=== PATIENT | female | born 1960 | race African-American/Black ===

== ENCOUNTER 2018-11-27 10:22 | Emergency (ER) | payer OTHER ==
[2018-11-27 10:35] VITALS: BP 147/70; PULSE 79; TEMP 97.8; BMI 24.5
--- NOTE | 2018-11-27 11:21 | PDOC ---
Attending Attestation - Resident Resident Name: Francesca Hinson - ED Attending Attestation I have performed the following: I have examined & evaluated the patient, The case was reviewed & discussed with the resident, I agree w/resident's findings & plan, Exceptions are as noted - HPI HPI: 11/27/18 11:47 58-year-old female with past medical history of hypertension, type 2 diabetes, adherent to her medications presents with concerns for potential hyperglycemia. The patient recently moved from [place] 2 months ago. She states that she has a machine that uses different units for checking glucose. Typically normal range ranges from 5-7. However, she had a few readings in the last several days that ranges to 10. But she is not sure as this may be secondary to her machine or stress. She denies any symptoms at all including fevers, chills, cough, vomiting , polyuria, polydipsia. Patient states that arrange of 10 suggest glucose of 170. - Physicial Exam PE: 11/27/18 11:49 GENERAL: Awake, alert, and fully oriented, in no acute distress HEAD: No signs of trauma EYES: EOMI, sclera anicteric, conjunctiva clear ENT: Auricles normal inspection, hearing grossly normal, nares patent, Moist mucosa NECK: Normal ROM, suppleses LUNGS: Breath sounds equal, clear to auscultation bilaterally. No wheezes, and no crackles HEART: Regular rate and rhythm, normal S1 and S2, no murmurs, rubs or gallops ABDOMEN: Soft, nontender. No guarding, no rebound. No masses EXTREMITIES: Normal range of motion, no edema. No clubbing or cyanosis. No cords, erythema, or tenderness NEUROLOGICAL: Cranial nerves II through XII grossly intact. Normal speech, normal gait SKIN: Warm, Dry, normal turgor, no rashes or lesions noted. - Medical Decision Making 11/27/18 11:49 Vital Signs Temp Pulse Resp BP Pulse Ox 97.8 F 79 18 147/70 100 11/27/18 10:32 11/27/18 10:32 11/27/18 10:32 11/27/18 10:32 11/27/18 10:32 Here the patient sugar is 139. At this time, I would not pursue any emergent workup at this time. However, patient does report that she is in the process of obtaining primary care physician. The patient can be discharged with outpatient management of her diabetes. Patient verbalizes understanding agreeable with plan. Patient states that she'll buy a new machine.
--- NOTE | 2018-11-27 11:43 | PDOC ---
History of Present Illness - General Chief Complaint: Blood Sugar Problem Stated Complaint: HTN Time Seen by Provider: 11/27/18 10:53 - History of Present Illness Initial Comments: Selene Chicas is a 58yo woman with a PMH of HTN, HLD, DM who presents reporting high blood sugars at home for several days. She states that her sugars have been in the high 100's, which is not normal for her. She has been taking her prescribed metformin and vidagliptin as prescribed, but she reports that she thinks the prescriptions were changed slightly the last time she saw a primary doctor. Ms Chicas recently moved from [place] 7wks ago and has not yet established care in the [facility]. Ms Chicas denies any recent symptoms including polyuria, change in diet, or infectious symptoms. She has been feeling well but was concerned about the unusually high sugars. Past History - Past Medical History Allergies/Adverse Reactions: Allergies Allergy/AdvReac Type Severity Reaction Status Date / Time Penicillins Allergy Verified 11/27/18 11:56 COPD: No Diabetes: Yes HTN: Yes - Immunization History Immunization Up to Date: No - Suicide/Smoking/Psychosocial Hx Smoking History: Never smoked Hx Alcohol Use: No Drug/Substance Use Hx: No Review of Systems - Review of Systems Comments:: General: No fevers, no chills, no weight or appetite change, no malaise HEENT: No changes in vision, no changes in hearing, no congestion, no sore throat CV: No chest pain, no palpitations, no LE edema Pulm: No SOB, no cough, no wheezing GI: No nausea or vomiting, no change in bowel habits, no melena : No frequency, no urgency, no dysuria Musc: No back pain, no joint swelling, no recent injury Skin: No rash, no lesions, no erythema Endo: No excessive thirst, no heat/cold intolerance Heme: No unusual bruising or bleeding, no swollen glands Neuro: No syncope, no numbness/tingling, no focal weakness Vasc: No claudication Psych: No recent change in mood, no SI or HI *Physical Exam - Vital Signs Last Vital Signs Temp Pulse Resp BP Pulse Ox 97.8 F 79 18 147/70 100 11/27/18 10:32 11/27/18 10:32 11/27/18 10:32 11/27/18 10:32 11/27/18 10:32 - Physical Exam Comments: General: Comfortable, no acute distress HEENT: PERRL, EOMI, MMM, voice normal, normal neck ROM, no LAD Cards: RRR, no murmur appreciated Pulm: Comfortable on room air, clear to auscultation bilaterally Abd: Soft, nontender, nondistended Ext: Atraumatic. No LE edema. ROM intact. Vasc: Extremities WWP. Skin: Normal color, no rashes or lesions Neuro: A&Ox3, CN grossly intact, normal speech, motor/sensory grossly intact and symmetric Psych: Mood appropriate to situation Medical Decision Making - Medical Decision Making 11/27/18 11:38 Selene Chicas is a 58yo woman with a PMH of HTN, HLD, DM who presents reporting high blood sugars at home for several days. She has been asymptomatic throughout. - Reported sugars in the 100's are not concerning, may be due to slight diet change after moving to [place] - Will check fingerstiick. As she is asymptomatic, may be able to establish care with a local PMD and follow up for any required medication adjustments. - No symptoms suggesting infection as a cause of hyerpglycemia - If glucose is not elevated to a concerning level, will most likely d/c home with follow up 11/27/18 11:42 - Fingerstick glucose 139 - Discussed with pt. Will d/c home with referral for primary care. Discussed with Dr Quevedo. Francesca Hinson PGY1 *DC/Admit/Observation/Transfer Diagnosis at time of Disposition: Diabetes - Discharge Dispostion Disposition: HOME Condition at time of disposition: Stable Decision to Admit order: No - Referrals Referrals: [facility] [place] [Provider Group] - Patient Instructions Printed Discharge Instructions: DI for Hyperglycemia -- Adult Additional Instructions: Discharge Instructions: You were seen in the emergency department for high blood sugars at home. Your sugar was checked in the ED, and it was 139. This is likely not high enough to cause any immediate problem, but you will need to follow up with a primary doctor within the next 1-2 weeks to determine if your medications need to be adjusted. You have been referred to the medicine clinic at [facility] if you need to establish care. Until you follow up, please continue to take all of your regular medications as previously prescribed. Seek immediate care if you have persistent high blood sugars along with significant thirst, excessive urination , abdominal pain, rapid breathing, or any other medical emergency. - Post Discharge Activity
== END 2018-11-27 12:26 | disposition home or self-care (01) ==
LOC: JER 10:22
DX: E11.65 Type 2 diabetes mellitus with hyperglycemia (principal); I10 Essential (primary) hypertension; E78.5 Hyperlipidemia, unspecified
CPT/HCPCS: 82962; 99281-25

== ENCOUNTER 2019-02-28 09:19 | Day surgery (SDC) | payer OTHER ==
[2019-02-20 16:32] VITALS: BMI 24.0
[2019-02-28 10:03] VITALS: TEMP 97.7
[2019-02-28] MEDS ORDERED: PROPOFOL 20 ML ONE (11:41)
[2019-02-28] MEDS ORDERED: LIDOCAINE HCL/PF 2% SDV 5ML VIAL ONE (11:41)
[2019-02-28 13:09] VITALS: BP 136/60; PULSE 65
--- NOTE | 2019-03-02 16:40 | PATH ---
Surgical Pathology Report Patient Name: JESS KAY [facility]. Rec. #: [id number] /Age/Gender: 1960 (Age: 58) / F Account: [id number] Location: [facility] Taken: 02/28/2019 Received: 02/28/2019 Reported: 03/02/2019 Physicians: Jade Boyle M.D. Specimen(s) Received A: POLYP PROXIMAL TRANSVERSE COLON B: POLYP TRANSVERSE COLON Clinical History Screening Postoperative diagnosis: Polyps, small hemorrhoids Final Diagnosis A. PROXIMAL TRANSVERSE COLON POLYP, POLYPECTOMY: TUBULAR ADENOMA. B. TRANSVERSE COLON POLYP, POLYPECTOMY: POLYPOID COLONIC MUCOSA WITH FOCAL SURFACE HYPERPLASTIC CHANGE. Electronically Signed Santosh Carbajal M.D. Gross Description A. Received in formalin, labeled "biopsy polyp proximal transverse" is a pérez, irregular portion of soft tissue measuring 0.4 cm. in greatest dimension. The specimen is submitted in toto in one cassette. B. Received in formalin, labeled "biopsy polyp transverse colon" is a pérez, irregular portion of soft tissue measuring 0.4 cm. in greatest dimension. The specimen is submitted in toto in one cassette. /03/01/2019 saudi03/01/2019
== END 2019-02-28 12:50 | disposition home or self-care (01) ==
LOC: FASU-ENDO 09:19
PROVIDERS: ATTEND Internal Medicine Gastroenterology
PROC: 0DBL8ZX Excision of Transverse Colon, Via Natural or Artificial Opening Endoscopic, Diagnostic (ICD-10-PCS; principal; 2019-02-28 11:44)
DX: Z12.11 Encounter for screening for malignant neoplasm of colon (principal); D12.3 Benign neoplasm of transverse colon; K63.5 Polyp of colon; K64.0 First degree hemorrhoids
CPT/HCPCS: 82962; 88305-TC

== ENCOUNTER 2021-05-23 21:39 | Emergency (ER) | payer OTHER ==
[2021-05-23 21:54] VITALS: BP 169/72; PULSE 76; TEMP 98.4; BMI 25.2
[2021-05-24] MEDS ORDERED: DIPHTH,PERTUSS(ACELL),TET 0.5 ML DISP.SYRIN IM ONE ×2 (00:55→01:16)
== END 2021-05-24 01:04 | disposition home or self-care (01) ==
LOC: JER 21:39
PROC: 3E0234Z Introduction of Serum, Toxoid and Vaccine into Muscle, Percutaneous Approach (ICD-10-PCS; principal; 2021-05-24)
DX: S91.331A Puncture wound without foreign body, right foot, initial encounter (principal); E11.9 Type 2 diabetes mellitus without complications
CPT/HCPCS: 90715; 99283-25

== ENCOUNTER 2022-08-04 09:42 | Day surgery (SDC) | payer OTHER ==
[2022-08-03 11:37] VITALS: BMI 24.8
[2022-08-04 11:55] VITALS: RESP 19; TEMP 98
[2022-08-04 12:07] VITALS: BP 133/66; PULSE 64
== END 2022-08-04 12:15 | disposition home or self-care (01) ==
LOC: FASU-ENDO 09:42
PROVIDERS: ATTEND Internal Medicine Gastroenterology
PROC: 0DBK8ZX Excision of Ascending Colon, Via Natural or Artificial Opening Endoscopic, Diagnostic (ICD-10-PCS; 2022-08-04)
PROC: 0DBN8ZX Excision of Sigmoid Colon, Via Natural or Artificial Opening Endoscopic, Diagnostic (ICD-10-PCS; principal; 2022-08-04 11:13)
DX: Z12.11 Encounter for screening for malignant neoplasm of colon (principal); D12.2 Benign neoplasm of ascending colon; D12.5 Benign neoplasm of sigmoid colon; K64.1 Second degree hemorrhoids; K64.8 Other hemorrhoids; Z86.010 Personal history of colon polyps
CPT/HCPCS: 82962; 88305-TC

== ENCOUNTER 2024-11-16 06:18 | Day surgery (SDC) | payer OTHER ==
[2024-11-13 13:55] VITALS: BMI 24.7
[2024-11-16 10:47] VITALS: RESP 18; TEMP 98
[2024-11-16 11:56] VITALS: BP 153/68; PULSE 54
== END 2024-11-16 11:56 | disposition home or self-care (01) ==
LOC: JASU-ENDO 06:18
PROVIDERS: ATTEND Student in an Organized Health Care Education/Training Program
PROC: 0DJD8ZZ Inspection of Lower Intestinal Tract, Via Natural or Artificial Opening Endoscopic (ICD-10-PCS; principal; 2024-11-16 10:00)
DX: Z12.11 Encounter for screening for malignant neoplasm of colon (principal); K59.89 Other specified functional intestinal disorders; K64.8 Other hemorrhoids; I10 Essential (primary) hypertension; E11.9 Type 2 diabetes mellitus without complications
CPT/HCPCS: 82962